=== PATIENT | female | born 1965 | race Caucasian/White ===

== ENCOUNTER 2017-12-30 17:20 | Observation (INO) ==
[2017-12-31] MEDS ORDERED: Naloxone 0.4 MG/ML INJ IVP PRN (00:43)
[2017-12-31] MEDS: *HR* OxyCODONE Immed Rel 5 MG TABLET PO PRN ×3 (01:18→21:12)
[2017-12-31 02:13] LABS: Basophils # 0.1 K/mcL (0.0-0.2); Basophils % 0.6 %; Eosinophils # 0.3 K/mcL (0.0-0.6); Eosinophils % 2.9 %; Hematocrit 39.1 % (35.3-44.9); Hemoglobin 12.3 g/dL (11.5-15.4); Immature Granulocytes % 1.2 % (0-4); Lymphocytes # 2.2 K/mcL (0.6-4.6); Lymphocytes % 24.6 %; Mean Corpuscular HGB Conc 31.5 g/dL (31.6-35.5); Mean Corpuscular Hemoglobin 27.7 pg (28.0-33.3); Mean Corpuscular Volume 88.1 fL (83.0-100.0); Mean Platelet Volume 9.8 fL (9.4-12.4); Monocytes # 0.8 K/mcL (0.0-1.3); Monocytes % 8.6 %; Neutrophils # 5.6 K/mcL (1.6-8.9); Platelet Count 228 K/mcL (140-400); Red Blood Count 4.44 M/mcL (3.82-4.97); Red Cell Distribution Width 15.1 % (11.5-14.5); Segmented Neutrophils % 62.1 %
[2017-12-31 02:18] LABS: Prothrombin Time 11.2 Seconds (9.4-12.1)
[2017-12-31 02:21] LABS: Activated Partial Thrombo Time 35.9 Seconds (26.0-36.0)
[2017-12-31 02:30] LABS: Alanine Aminotransferase 44 Units/L (7-52); Albumin 3.9 g/dL (3.5-5.7); Albumin/Globulin Ratio 1.6 (1.1-2.2); Alkaline Phosphatase 74 Units/L (34-104); Aspartate Amino Transferase 27 Units/L (13-39); BUN/Creatinine Ratio 25 (6-26); Bilirubin,Total 0.3 mg/dL (0.3-1.0); Blood Urea Nitrogen 16 mg/dL (6-20); Carbon Dioxide 23 mEq/L (23-29); Chloride 107 mEq/L (98-107); Chol/HDL Ratio 4.5 (0-4.9); Cholesterol 174 mg/dL (< 200); Globulin 2.5 g/dL (2.4-3.5); Glucose 152 mg/dL (70-105); HDL Cholesterol 39 mg/dL (40-59); LDL Cholesterol,Calculated 102 mg/dL (0-99); Magnesium 1.9 mg/dL (1.6-2.6); Osmolality,Calculated 292 (280-300); Potassium 3.9 mEq/L (3.5-5.1); Sodium 139 mEq/L (136-145); Total Protein 6.4 g/dL (6.4-8.9); Triglycerides 167 mg/dL (< 150); eGFR For Non-African Americans > 60 (> 60)
--- NOTE | 2017-12-31 03:53 | Internal Med History&Physical ---
Date of Encounter: 12/31/17 Time of Encounter: 00:15 Internal Medicine - H&P: HPI Chief complaint: chest pain Admitted From: Emergency Dept Plans for Post Hospital Care: Home History of present illness: Ms. Loera is a 52 year old female who presents to [facility] in transfer from [place] ER with complaints of substernal chest pain, pressure, diaphoresis, and shortness of breath, which woke her from sleep on the evening/ early childhood associate of December 30 at 2 AM. Pain lasted about 40 minutes and eventually went away. She waited until later in the morning to call her PCP and asked for guidance and advice. She received a phone call from her PCP office later in the afternoon who advised her to go to ER for cardiac workup. She therefore came to ER this evening and was admitted for chest pain workup. Upon my assessment of the patient, she is chest pain-free and denies any shortness of breath, diaphoresis, nausea, or radiating chest pain to her arms, neck, or jaw. She has never had symptoms like this before. She is concerned that her chest pain may be due to anxiety, but she also later worried that this could be true cardiac source of pain. She does suffer from anxiety and it has been relatively well controlled on her home medication. She has never had a chest pain workup in the past. Her cardiac risk factors for heart disease include hyperlipidemia and family history. Past Med Surg Social Fam HX - Past Medical History Attestation: Yes The following information was validated with the patient. Source: patient, old records reviewed, other (ER notes) Medical history: GERD, hyperlipidemia Additional medical history: bladder incontinence, colitis Psychiatric history: anxiety - Past Surgical History Surgical History: appendectomy, cholecystectomy, arthroscopy Additional surgical history: tubal, right knee and right shoulder shoulder surgeries - Social History Smoking Status: Never smoker Smokeless Tobacco Status: No Alcohol use: none Drug use: none Current living situation: Home, With Family Activity Level: Independent ambulation Recent Out of Country Travel Within the Last 8 Weeks: No - Family History Mother Hx Family Cardiac Disorders: Yes Father Hx Family Cardiac Disorders: Yes Hx Family Neurologic Disorders: Yes (TIA) Internal Medicine - H&P: Meds Aspirin Enteric Coated [Aspirin EC] 81 mg PO DAILY 01/30/17 [History] FLUoxetine HCl [Prozac] 20 mg PO DAILY 01/30/17 [History] Ibuprofen 600 mg PO Q6H PRN 01/30/17 [History] Omeprazole [PriLOSEC] 20 mg PO DAILY 01/30/17 [History] OxyCODONE Immed Rel [Roxicodone 5 MG] 5 mg PO Q4HR PRN #24 tablet 01/30/17 [Rx] Oxybutynin [Ditropan] 5 mg PO BID 01/30/17 [History] Simvastatin [Zocor] 20 mg PO HS 01/30/17 [History] 3 Allergy/AdvReac Type Severity Reaction Status Date / Time bee venom protein (honey bee) Allergy Anaphylaxis Verified 12/30/17 13:41 Penicillins Allergy Difficulty Verified 12/30/17 13:41 Breathing - Constitutional Constitutional: no chills, no fever(s) - EENT Eyes: no blurry vision, no change in vision Ears: no ear pain, no tinnitus Nose, mouth and throat: no nasal congestion, no sinus pressure, no sore throat - Cardiovascular Cardiovascular ROS IM: chest pain, diaphoresis, dyspnea, no orthopnea, no paroxysmal nocturnal dyspnea, no syncope - Respiratory Respiratory: no cough, no hemoptysis, no chest congestion, no excessive phlegm production, no change in phlegm color - Gastrointestinal Gastrointestinal: no abdominal pain, no diarrhea, no hematemesis, no hematochezia, no melena, no vomiting - Genitourinary Genitourinary: no dysuria, no flank pain, no hematuria - Musculoskeletal Musculoskeletal ROS IM: no arthralgias, no back pain - Integumentary Integumentary IM: no rash, no jaundice - Neurological Neurological ROS: no dizziness, no focal weakness, no frequent falls, no headache(s) - Psychiatric Psychiatric: no anxiety, no depression - Endocrine Endocrine IM: no polydipsia, no polyuria - Allergic/Immunologic Allergic/Immunologic: no wheezing, no GI upset with certain foods - Constitutional Vitals: Temp Pulse Resp BP Pulse Ox 98.0 F 97 16 121/66 95 12/30/17 23:11 12/30/17 23:11 12/30/17 23:11 12/30/17 23:11 12/30/17 23:11 General appearance: Present: cooperative, A&O X 3, pleasant, no acute distress, answers questions appropriately Exam: see below - Head Head exam: Present: normal inspection - Eye Eye exam: Present: EOMI, PERRL. Absent: scleral icterus Pupils: Present: normal accommodation - ENT ENT exam: Present: mucous membranes dry, normal exam, normal oropharynx - Neck Neck exam general surgery: Present: full ROM, supple. Absent: tenderness, nuchal rigidity, thyromegaly - Respiratory Respiratory exam: Present: CTAB. Absent: chest wall tenderness, rales, rhonchi , wheezes - Cardiovascular Cardiovascular exam: Present: RRR, +S1, +S2. Absent: diastolic murmur, systolic murmur - GI/Abdominal GI/Abdominal exam: Present: normal bowel sounds, soft. Absent: hepatomegaly, splenomegaly, tenderness - Extremities Exam Extremities exam: Present: full ROM, warm, radial pulses palpable and symmetrical. Absent: calf tenderness, pedal edema, tenderness - Back Exam Back exam: Absent: CVA tenderness (L), CVA tenderness (R) - Neurological Exam Neurological exam: Present: alert, CN II-XII intact, oriented X3, no focal deficits - Psychiatric Psychiatric exam: Present: anxious - Skin Skin exam: Present: dry, warm. Absent: rash Internal Med - H&P Results - Labs CBC & Chem 7: 12/31/17 01:48 12/31/17 01:48 Labs: Short CBC 12/31/17 Range/Units 01:48 WBC 9.0 (4.3-11.1) K/mcL Hgb 12.3 (11.5-15.4) g/dL Hct 39.1 (35.3-44.9) % Plt Count 228 (140-400) K/mcL Neutrophils # 5.6 (1.6-8.9) K/mcL BMP 12/31/17 01:48 Sodium 139 Potassium 3.9 Chloride 107 Carbon Dioxide 23 BUN 16 Creatinine 0.65 Glucose 152 H Calcium 9.0 Cardiac Enzymes 12/31/17 Range/Units 01:48 Troponin I < 0.03 (< 0.04) ng/mL Liver Function 12/31/17 Range/Units 01:48 Total Bilirubin 0.3 (0.3-1.0) mg/dL AST 27 (13-39) Units/L ALT 44 (7-52) Units/L Alkaline Phosphatase 74 (34-104) Units/L Albumin 3.9 (3.5-5.7) g/dL - EKG Data -: EKG Interpreted by Myself - EKG Data Prior EKG available for review: no EKG comments: 12/31/17 03:57 NSR; subtle lateral wall ST-T depression - Diagnostic Studies Chest x-ray Status: image reviewed by me (negative) - Assessment and plan (1) Chest pain Current Visit: Yes Status: Acute Assessment and plan: 1. Will trend troponins, EKG's. 2. Will order ECHO and stress test to be done in the morning. 3. Consult cardiology if above abnormal. Qualifiers: Chest pain type: precordial pain Qualified Code(s): R07.2 - Precordial pain (2) Hyperlipidemia Current Visit: Yes Status: Chronic Assessment and plan: 1. Will order fasting lipid profile. 2. Continue home meds. Qualifiers: Hyperlipidemia type: unspecified Qualified Code(s): E78.5 - Hyperlipidemia , unspecified (3) Anxiety Current Visit: Yes Status: Chronic Assessment and plan: 1. Continue home dose of Fluoxetine. 2. May need medication adjustment after hospital stay. (4) DVT prophylaxis Current Visit: Yes Status: Acute Assessment and plan: 1. Heparin SQ.
[2017-12-31] MEDS: *HR* Heparin 5,000 UNIT/ML VIAL SQ SCH ×2 (05:57→17:36)
[2017-12-31] MEDS ORDERED: Regadenoson 0.4 MG/5 ML SYRINGE IVP ONE (05:58)
[2017-12-31] MEDS ORDERED: Perflutren Lipid Microsphere 1.3 ML in 0.9 % Sodium Chloride 8.7 ML IVP ONE (11:09)
[2017-12-31] MEDS: FLUoxetine 20 MG CAPSULE PO SCH (12:08)
[2017-12-31] MEDS: Aspirin Enteric Coated 81 MG Tablet PO SCH (12:09)
--- NOTE | 2017-12-31 13:18 | Internal Med Progress Note ---
Hospitalist Progress Note - Encounter Date of Encounter: 12/31/17 Time of Encounter: 13:18 - Exam Vitals: Temp Pulse Resp BP Pulse Ox 97.7 F 82 18 133/74 93 12/31/17 07:55 12/31/17 07:55 12/31/17 07:55 12/31/17 07:55 12/31/17 07:55 Exam: GENERAL: morbidly obese HEENT: Head is normocephalic and atraumatic. Extraocular muscles are intact. Pupils are equal, round, and reactive to light and accommodation, 2 mm bilaterally NECK: Supple. No carotid bruits. No lymphadenopathy or thyromegaly. LUNGS: Clear to auscultation. HEART: Regular rate and rhythm, S1, S2 without murmur. ABDOMEN: TWIN EXTREMITIES: Without any cyanosis, clubbing, rash, lesions or edema. NEUROLOGIC: Alert and appropriate PSYCHIATRIC: Calm at this time SKIN: No ulceration or induration present. - Assessment and Plan (1) Chest pain Current Visit: Yes Status: Acute Assessment and Plan: 1. Troponins are negative [address]-T wave abnormality patient has undergone first half of a 2 day stress test 2. ECHO; EF 60% mild left ventricular diastolic dysfunction normal right ventricular structure and function trace aortic regurgitation possibly underestimated mild tricuspid regurgitation IVC is mildly dilated borderline pulmonary hypertension 3. Consult cardiology if above abnormal. (2) Hyperlipidemia Current Visit: Yes Status: Chronic Assessment and Plan: Continue home meds.-Continue with Zocor (3) Anxiety Current Visit: Yes Status: Chronic Assessment and Plan: 1. Continue home dose of Fluoxetine. 2. May need medication adjustment after hospital stay. (4) DVT prophylaxis Current Visit: Yes Status: Acute Assessment and Plan: 1. Heparin SQ. - Time Spent with Patient Total time spent is greater than 50% in coordination of care (as documented) at patient's floor/unit and/or counseling patient: Internal Medicine: Result - Labs CBC & Chem 7: 12/31/17 01:48 12/31/17 01:48 Labs: Short CBC 12/31/17 Range/Units 01:48 WBC 9.0 (4.3-11.1) K/mcL Hgb 12.3 (11.5-15.4) g/dL Hct 39.1 (35.3-44.9) % Plt Count 228 (140-400) K/mcL Neutrophils # 5.6 (1.6-8.9) K/mcL BMP 12/31/17 01:48 Sodium 139 Potassium 3.9 Chloride 107 Carbon Dioxide 23 BUN 16 Creatinine 0.65 Glucose 152 H Calcium 9.0 Cardiac Enzymes 12/31/17 12/31/17 Range/Units 01:48 08:02 Troponin I < 0.03 < 0.03 (< 0.04) ng/mL Liver Function 12/31/17 Range/Units 01:48 Total Bilirubin 0.3 (0.3-1.0) mg/dL AST 27 (13-39) Units/L ALT 44 (7-52) Units/L Alkaline Phosphatase 74 (34-104) Units/L Albumin 3.9 (3.5-5.7) g/dL - ABG Interpretation ABG results: PT/INR, D-dimer PT 11.2 Seconds (9.4-12.1) 12/31/17 01:48 Consult Discharge Plan - Plan Referrals: Marah Moreno MD [Primary Care Provider] - (1) Chest pain Qualifiers: Chest pain type: precordial pain Qualified Code(s): R07.2 - Precordial pain (2) Hyperlipidemia Qualifiers: Hyperlipidemia type: unspecified Qualified Code(s): E78.5 - Hyperlipidemia, unspecified
[2018-01-01 04:55] LABS: Basophils # 0.1 K/mcL (0.0-0.2); Basophils % 0.9 %; Eosinophils # 0.3 K/mcL (0.0-0.6); Eosinophils % 3.4 %; Hematocrit 39.1 % (35.3-44.9); Hemoglobin 12.4 g/dL (11.5-15.4); Immature Granulocytes % 1.5 % (0-4); Lymphocytes # 2.2 K/mcL (0.6-4.6); Lymphocytes % 27.6 %; Mean Corpuscular HGB Conc 31.7 g/dL (31.6-35.5); Mean Corpuscular Hemoglobin 28.1 pg (28.0-33.3); Mean Corpuscular Volume 88.5 fL (83.0-100.0); Mean Platelet Volume 10.1 fL (9.4-12.4); Monocytes # 0.7 K/mcL (0.0-1.3); Neutrophils # 4.6 K/mcL (1.6-8.9); Platelet Count 213 K/mcL (140-400); Red Blood Count 4.42 M/mcL (3.82-4.97); Segmented Neutrophils % 57.6 %
[2018-01-01 05:34] LABS: BUN/Creatinine Ratio 27 (6-26); Blood Urea Nitrogen 15 mg/dL (6-20); Calcium 8.8 mg/dL (8.6-10.3); Carbon Dioxide 18 mEq/L (23-29); Chloride 108 mEq/L (98-107); Glucose 133 mg/dL (70-105); Osmolality,Calculated 289 (280-300); Potassium 4.3 mEq/L (3.5-5.1); Sodium 138 mEq/L (136-145); eGFR For Non-African Americans > 60 (> 60)
[2018-01-01] MEDS: *HR* Heparin 5,000 UNIT/ML VIAL SQ SCH ×2 (05:49→17:42)
[2018-01-01] MEDS: Aspirin Enteric Coated 81 MG Tablet PO SCH (08:59)
[2018-01-01] MEDS: FLUoxetine 20 MG CAPSULE PO SCH (09:00)
[2018-01-01] MEDS: *HR* OxyCODONE Immed Rel 5 MG TABLET PO PRN (12:01)
--- NOTE | 2018-01-01 13:44 | Cardiology Consult Note ---
<Javier Otero R - Last Filed: 01/01/18 13:42> Date of Encounter: 01/01/18 Time of Encounter: 13:42 Assessment and Plan (1) Abnormal stress test Current Visit: Yes Status: Acute Presented with substernal chest pain, pressure, diaphoresis, and shortness of breath, which woke her from sleep on the evening/solid surface fabricator of December 30 at 2 AM. Pain lasted about 40 minutes and eventually went away, radiated to left jaw. Troponins were negative. 2 day stress test that showed Gated EF = 68%. Small sized, moderate intensity, mostly reversible apex and apical lateral defect possibly due to a small area of ischemia. SDS 3. Cardiology consulted for further recs. TTE EF preserved, mild TR, Lipomatous interatrial septum. Pt reports she had recurrent CP today that radiated to left jaw. Reports both parents had MIs, mother was in her 30s. Risk factors for CAD include HTN, HLD, prior tobacco abuse, family hx and obesity. Recommend [facility]. R/B/A discussed. Pt agrees to proceed. [facility] today. Continue to follow. (2) Chest pain Current Visit: Yes Status: Acute As above, CP with abnormal stress. [facility] today. Qualifiers: Chest pain type: precordial pain Qualified Code(s): R07.2 - Precordial pain Discussion w patient/family: The assessment and plan as outlined above was discussed with the patient and/or family members who expressed understanding and agreement. All questions were answered. Thank you for involving us in the care of your patient. Please call with any questions. I will discuss all the above with Dr. Shaw and make changes as necessary. History of Present Illness Consult date: 01/01/18 Consult reason: abnormal stress Chief complaint: chest pain History of present illness: Ms. Loera is a 52 year old female with PMH of HLD, HTN, prior tobacco abuse, who presented to [facility] in transfer from [facility] with complaints of substernal chest pain, pressure, diaphoresis, and shortness of breath, which woke her from sleep on the evening/solid surface fabricator of December 30 at 2 AM. Pain lasted about 40 minutes and eventually went away, radiated to left jaw. She waited until later in the morning to call her PCP and asked for guidance and advice. She received a phone call from her PCP office later in the afternoon who advised her to go to ER for cardiac workup. She therefore came to ER this evening and was admitted for chest pain workup. Troponins were negative, underwent 2 day stress test that showed Gated EF = 68%. Small sized, moderate intensity, mostly reversible apex and apical lateral defect possibly due to a small area of ischemia. SDS 3. Cardiology consulted for further recs. TTE EF preserved, mild TR, Lipomatous interatrial septum. Pt reports she had recurrent CP today that radiated to left jaw. Reports both parents had MIs, mother was in her 30s. Past Med Surg Social Fam HX - Past Medical History Medical history: GERD, hyperlipidemia Additional medical history: bladder incontinence, colitis Psychiatric history: anxiety - Past Surgical History Surgical History: appendectomy, cholecystectomy, arthroscopy Additional surgical history: tubal, right knee and right shoulder shoulder surgeries - Social History Smoking Status: Never smoker Smokeless Tobacco Status: No Alcohol use: none Drug use: none - Family History Mother Hx Family Cardiac Disorders: Yes Father Hx Family Cardiac Disorders: Yes Hx Family Neurologic Disorders: Yes (TIA) Medications and Allergies Aspirin Enteric Coated [Aspirin EC] 81 mg PO DAILY 01/30/17 [History] FLUoxetine HCl [Prozac] 20 mg PO DAILY 01/30/17 [History] Oxybutynin [Ditropan] 5 mg PO TID 01/30/17 [History] Simvastatin [Zocor] 20 mg PO HS 01/30/17 [History] Colestipol HCl [Colestid] 2 gm PO DAILY 12/31/17 [History] Cyclobenzaprine [Flexeril] 10 mg PO HS PRN 12/31/17 [History] Dicyclomine [Bentyl] 20 mg PO QID 12/31/17 [History] Naproxen [Naprosyn] 500 mg PO BID 12/31/17 [History] 3 Allergy/AdvReac Type Severity Reaction Status Date / Time bee venom protein (honey bee) Allergy Anaphylaxis Verified 12/30/17 13:41 Penicillins Allergy Difficulty Verified 12/30/17 13:41 Breathing All Systems Review: The remainder of the systems were reviewed and are negative - Cardiovascular Cardiovascular: as per HPI, chest pain at rest, chest pain with exertion, diaphoresis, dyspnea on exertion, radiating jaw, neck or arm pain, lightheadedness - Respiratory Respiratory: dyspnea Physical Examination Vital Signs, Last 4 Hours Temp Pulse Resp BP Pulse Ox 01/01/18 11:39 97.9 F 75 16 156/67 97 Vital Signs Temp Pulse Resp BP Pulse Ox 01/01/18 11:39 97.9 F 75 16 156/67 97 01/01/18 07:28 97.9 F 68 16 152/76 96 01/01/18 03:05 97.6 F 87 14 132/70 97 12/31/17 23:27 98.6 F 80 16 152/63 95 12/31/17 19:14 98.2 F 94 16 161/50 96 12/31/17 15:41 98.0 F 86 16 134/76 96 Intake and Output 12/31/17 01/01/18 01/01/18 23:59 07:59 15:59 Intake Total 480 / 480 0 / 0 Output Total 150 / 150 Balance 480 / 480 -150 / -150 Intake: Oral 480 / 480 0 / 0 Output: Urine 150 / 150 Other: Meal npo Percent of Meal Consumed 100% 0% Weight 159 kg Patient Weight 01/01/18 23:59 Weight 159 kg General: Conversant, No Apparent Distress HEENT: Atraumatic, Normocephaly, Mucus Membranes Moist Neck: No JVD, Normal carotid pulses Cardiac: Reg Rate and Rhythm, Normal S1 and S2, No Murmur Lungs: Normal Breath Sounds, No Wheeze, Rales, Rhonchi Neuro: Alert and responsive, No focal deficits noted Abdomen: Soft, Non-Tender Skin: No rashes noted on visualized skin Musculoskeletal: No Chest Wall Tenderness Extremities: No Clubbing, No Cyanosis, No Edema, Normal Pulses Results 01/01/18 03:32 01/01/18 03:32 Lab Results 01/01/18 01/01/18 03:32 03:32 WBC 8.0 Hgb 12.4 Hct 39.1 Plt Count 213 Sodium 138 Potassium 4.3 Chloride 108 H Carbon Dioxide 18 L BUN 15 Creatinine 0.56 L Glucose 133 H Calcium 8.8 Short CBC 01/01/18 Range/Units 03:32 WBC 8.0 (4.3-11.1) K/mcL Hgb 12.4 (11.5-15.4) g/dL Hct 39.1 (35.3-44.9) % Plt Count 213 (140-400) K/mcL Neutrophils # 4.6 (1.6-8.9) K/mcL BMP 01/01/18 Range/Units 03:32 Sodium 138 (136-145) mEq/L Potassium 4.3 (3.5-5.1) mEq/L Chloride 108 H (98-107) mEq/L Carbon Dioxide 18 L (23-29) mEq/L BUN 15 (6-20) mg/dL Creatinine 0.56 L (0.60-1.20) mg/dL Glucose 133 H (70-105) mg/dL Calcium 8.8 (8.6-10.3) mg/dL Impressions Echocardiogram 12/31/17 00:43 Impressions: LVEF 60%. Normal left ventricular diastolic function. Normal right ventricular structure and function. Mild tricuspid regurgitation. No pulmonary hypertension. Lipomatous interatrial septum. Left Ventricular Wall Motion: Rest Echo Findings All wall segments showed normal motion. Findings: Study Quality * Technically adequate exam. ECG Findings * Normal sinus rhythm. Left Ventricle * LVEF 60%. * Normal LV chamber size, wall thickness and function. * Normal left ventricular diastolic function. Right Ventricle * Normal right ventricular structure and function. Left Atrium * Mildly dilated left atrium. Right Atrium * Normal right atrial size. Mitral Valve * Normal mitral valve structure. * No mitral stenosis. * No mitral regurgitation. Aortic Valve * No aortic regurgitation. * Trileaflet aortic valve. * No aortic stenosis. Tricuspid Valve * Normal tricuspid valve structure. * Mild tricuspid regurgitation. Pulmonic Valve * Pulmonic valve is not well visualized. * No pulmonic stenosis. * No pulmonic regurgitation. Pulmonary Artery * Pulmonary artery not well visualized. Aorta * Normally sized aortic root. Pericardium * There is no pericardial effusion present. Interatrial Septum * Lipomatous interatrial septum. * Interatrial septum not well evaluated in the subcostal view. IVC * The IVC is not well evaluated. Active Medications Aspirin (Aspirin Ec) 81 mg PO DAILY [facility] Stop: 07/02/18 09:01 Last Admin: 01/01/18 08:59 Dose: 81 mg Fluoxetine HCl (Prozac) 20 mg PO DAILY [facility] PRN Reason: Protocol Stop: 07/02/18 09:01 Last Admin: 01/01/18 09:00 Dose: 20 mg Heparin Sodium (Porcine) (Heparin) 5,000 unit SQ Q12HCO [facility] Stop: 07/02/18 06:01 Last Admin: 01/01/18 05:49 Dose: 5,000 unit Naloxone HCl (Narcan) 0.4 mg IVP Q2MIN PRN PRN Reason: SEE COMMENTS Stop: 07/02/18 00:44 Omeprazole (Prilosec) 20 mg PO 0800 [facility] PRN Reason: Protocol Stop: 07/02/18 08:01 Last Admin: 01/01/18 08:59 Dose: 20 mg Oxybutynin Chloride (Ditropan) 5 mg PO BID [facility] PRN Reason: Protocol Stop: 07/02/18 01:01 Last Admin: 01/01/18 09:00 Dose: 5 mg Oxycodone HCl (Roxicodone) 5 mg PO Q4HR PRN; Protocol PRN Reason: Pain Stop: 07/02/18 00:50 Last Admin: 01/01/18 12:01 Dose: 5 mg Simvastatin (Zocor) 20 mg PO HS [facility] PRN Reason: Protocol Stop: 07/02/18 01:01 Last Admin: 12/31/17 21:12 Dose: 20 mg - Imaging and Cardiology Stress Test: report reviewed Echo: report reviewed Consult Discharge Plan - Plan Referrals: Marah Moreno MD [Primary Care Provider] - <Brian Shaw - Last Filed: 01/01/18 18:55> Date of Encounter: 01/01/18 - Attending Attestation Patient was seen and evaluated independently by me. Findings, assessment and plan were discussed at length with patient, questions answered. Agree with nurse practitioner's documentation. Addition as follows, 52 yoCF w/ HTN, HLD, ex-smoker p/w angina. + ischemia on SPECT. LHC revealed no obstructive epicardial CAD. No hematoma of R-groin entry site. A: microvascular CAD, angina P: aggressive risk factor modification discussed with pt regarding HTN, HLD control, life style modification f/u PCP Brian Shaw MD, PhD Assessment and Plan Discussion w patient/family: The assessment and plan as outlined above was discussed with the patient and/or family members who expressed understanding and agreement. All questions were answered. Thank you for involving us in the care of your patient. Please call with any questions. History of Present Illness History of present illness: Ms. Loera is a 52 year old female All Systems Review: The remainder of the systems were reviewed and are negative Physical Examination Vital Signs, Last 4 Hours Pulse Resp BP Pulse Ox 01/01/18 18:20 79 14 119/53 98 01/01/18 18:05 77 16 116/55 97 01/01/18 17:50 73 16 115/68 96 01/01/18 17:35 77 16 103/63 95 Results 01/01/18 03:32 01/01/18 03:32 Lab Results 01/01/18 01/01/18 03:32 03:32 WBC 8.0 Hgb 12.4 Hct 39.1 Plt Count 213 Sodium 138 Potassium 4.3 Chloride 108 H Carbon Dioxide 18 L BUN 15 Creatinine 0.56 L Glucose 133 H Calcium 8.8
[2018-01-01] MEDS ORDERED: *HR* Heparin 10,000 UNIT/10 ML VIAL ONE (15:22)
[2018-01-01] MEDS ORDERED: Verapamil 5 MG/2 ML VIAL ONE (15:22)
[2018-01-01] MEDS ORDERED: Heparin 1,000 UNITS/500 mL 500 ML ONE (15:22)
[2018-01-01] MEDS ORDERED: 0.9 % Sodium Chloride 1,000 ML ONE ×2 (15:22→15:25)
[2018-01-01] MEDS ORDERED: Nitroglycerin 1,000 MCG/10 ML VIAL IV ONE (15:23)
[2018-01-01] MEDS ORDERED: ISOVUE-370 200 ML INFUS..BTL IV ONE (15:23)
[2018-01-01] MEDS ORDERED: *HR* FentaNYL (PF) 100 MCG/2 ML VIAL ONE (16:31)
[2018-01-01] MEDS ORDERED: *HR* Midazolam HCl 5 MG/5 ML VIAL IVP ONE (16:31)
--- NOTE | 2018-01-01 16:44 | Pre-Sedation Evaluation ---
Pre-sedation evaluation - Pre-sedation checklist Date of procedure: 01/01/18 Procedure: heart cath Recent Vitals: Last Vital Signs Temp 97.9 F 01/01/18 11:39 Pulse 75 01/01/18 11:39 Resp 16 01/01/18 11:39 BP 156/67 01/01/18 11:39 Pulse Ox 97 01/01/18 11:39 H&P (including ROS) documented in medical record: Yes Dietary Status: NPO after Midnight Dentition: No loose teeth or bridges, full dentition ASA Classification *see protocol: CLASS II-Mild systemic disease Plan of Care: Pt appropriate candidate for procedure/moderate/conscious sedation , Risks/benefits of procedure/sedation discussed w/ patient/family Cardiac Registry (Cardio Only) - Functional Capacity Functional Capacity: >=4 METS with symptoms - Clincal Frailty Scale Clinical Frailty Scale: Managing Well
--- NOTE | 2018-01-01 17:15 | Event Note ---
Date of Encounter: 01/01/18 Time of Encounter: 17:20 - Cardiology Event Note Prelim - Minimal CAD by [facility] with EF 45-50%
--- NOTE | 2018-01-01 17:30 | Invasive Diagnostic Lab Proc ---
Name: Nayla Loera Date of Study: 01/01/2018 Date: 1965 Ht: 64.2in Medical Record#: [id number] Age: 52 Wt: 350.54lb Gender: Female BSA: 2.49 Order #: [id number] BMI: 59.84 Physicians Procedure Physician: Brennon Zhu MD, [facility] Referring MD: Referring MD: Staff Name Position Time In Sites, Sonam RT (R) Monitor 04:38 PM Sonam Wolfe RT (R) Scrub 04:38 PM Angel Brown RN Housekeeping Aid 04:38 PM Indications Indication Abnormal Test - Stress Procedures Performed Procedure L HRT ARTERY/VENTRICLE ANGIO Pre-Procedure Checklist Informed consent is complete signed and on chart. H&P is on chart. ID band is on and ID verified with patient. Patient NPO for procedure The procedure was described for the patient and questions were answered. Blood Pressure: 149/84 ECG is on chart. Rhythm: NSR Plan of Care Patient will tolerate the procedure without complications. Adequate level of comfort will be maintained. Hemodynamics will remain stable Patient will recover from procedure without complications. Respiratory function will be maintained. Cardiac rhythm will remain stable. Patient temperature will be maintained. Patient and/or family have verbalized understanding of the procedure. Patient Education Chief Complaint/Reason for Test: Cardiac Cath Developmental Category: Adult (18-64 years) Developmentally Appropriate for Age: Yes Learning Barriers: None Education Needs: Procedure Education Method: Verbal Information Taught: Cardiac Cath Educational Evaluation: Able to repeat information Intravenous Access Time IV Size Location DC'd Fluid/Drip Rate Units RN 22g 1" Patent On Arrival Rt Hand 0.9NaCl 25 ml/hr Angel Brown RN Allergies Penicillins bee venom protein (honey bee) Vital Signs Time BP (mmHg) HR (bpm) O2 Sat. RR (bpm) LOC 04:40 PM / % 5 = Fully awake and oriented or at pre-proc level 04:40 PM / % 4 = Oriented but drowsy 04:37 PM 149 / 84 75 99 % 15 04:42 PM 135 / 75 75 96 % 20 04:47 PM 138 / 78 73 95 % 13 04:52 PM 144 / 76 73 99 % 14 04:57 PM 138 / 78 78 97 % 12 05:02 PM 136 / 75 84 99 % 14 05:07 PM 136 / 77 81 97 % 12 05:12 PM 144 / 53 77 100 % 13 Procedural Medications Time Medication Dose Units Method Given By 04:39 PM Oxygen 2 L/min nasal cannula Angel Brown RN 04:39 PM Versed 2 mg Intravenous Angel Brown RN 04:39 PM Fentanyl 50 mcg Intravenous Angel Brown RN 04:51 PM Versed 1 mg Intravenous Angel Brown RN 04:51 PM Fentanyl 25 mcg Intravenous Angel Brown RN 04:51 PM Lidocaine 2% 0.5 ml Subcutaneous Brennon Zhu MD, FAC 04:57 PM Lidocaine 2% 20 ml Subcutaneous Brennon Zhu MD, FAC 05:02 PM Versed 1 mg Intravenous Angel Brown RN 05:02 PM Fentanyl 25 mcg Intravenous Angel Brown RN ASA Classification: CLASS II- Mild systemic disease (i.e. well-controlled diabetes, hypertension, asthma, cigarette smoking) Satish Score Preprocedure Postprocedure Activity 2- Moves 4 extremities sustained head lift Activity 2- Moves 4 extremities sustained head lift Circulation 2- SBP +/= 20 points of pre-anesthetic level Circulation 2- SBP +/= 20 points of pre-anesthetic level Consciousness 2- Awake and alert oriented x 3 Consciousness 2- Awake and alert oriented x 3 O2 Saturation 2- Able to maintain O2 satruation of 92% on room air O2 Saturation 2- Able to maintain O2 satruation of 92% on room air Respiratory 2- Able to deep breathe and cough well Respiratory 2- Able to deep breathe and cough well Total Score 10 Total Score 10 Contrast Agent: Isovue Diagnostic Contrast: 83 ml Total Contrast: 83 ml Fluoro Dose: 3811 mGy Procedure Log Time Note Enter By 04:36 PM Vitals capture started with the following parameters, Patient=Adult, Interval=5 min, Initial Xrerwklt=074 mmHg, Deflation Rate=5 mmHg, Cuff placed on Right Arm 04:36 PM CathStat 04:37 PM HR=75 bpm, CFKL=803/84 mmhg, SpO2=99 %, Resp=15 B/min 04:38 PM Pt arrived to laboratory technician 2 at 16:38 tsites 04:38 PM Sonam Avalos RT (R) Position: Monitor Time in: 16:38 tsites 04:38 PM Sonam Wolfe RT (R) Position: Scrub Time in: 16:38 tsites 04:39 PM Angel Brown RN Position: Housekeeping Aid Time in: 16:38 tsites 04:39 PM Patient charges- Angio tray pack, Navilyst 3mm J, Pulse Oximetry and ACIST tubing and transducer tsites 04:39 PM Physician arrived 16:39 tsites 04:39 PM Meet and greet completed tsites 04:39 PM Sign in performed according to hospital policy. tsites 04:39 PM Procedure start 16:39 tsites 04:39 PM Hair removed from procedure site in holding area using clippers. Right wrist prepped with Chloraprep by Sonam Avalos (R), then patient was draped. Skin intact. tsites 04:39 PM Time: 16:39 Oxygen on at 2 L/min per nasal cannula by Angel Brown RN tsites 04:39 PM Time: 16:39 Versed 2 mg Intravenous Given by Angel Brown RN tsites 04:39 PM Time: 16:39 Fentanyl 50 mcg Intravenous Given by Angel Brown RN tsites 04:40 PM Time: 16:40 Patient comfortable and pain free: Yes tsites 04:40 PM Time: 16:40LOC: 5 = Fully awake and oriented or at pre-proc level tsites 04:40 PM Clinical Presentation: Unstable angina tsites 04:41 PM Recorded ECG: HR=80 Condition=Condition 1 04:42 PM HR=75 bpm, KXJI=144/75 mmhg, SpO2=96.0 %, Resp=20 B/min 04:44 PM Pressure channel 1 zeroed. 04:47 PM HR=73 bpm, SYWE=146/78 mmhg, SpO2=95 %, Resp=13 B/min 04:51 PM Time out performed according to hospital policy tsites 04:51 PM Time: 16:51 Versed 1 mg Intravenous Given by Angel Brown RN tsites 04:51 PM Time: 16:51 Fentanyl 25 mcg Intravenous Given by Angel Brown RN tsites 04:52 PM Time: 16:51 0.5 ml Lidocaine 2% to right radial Subcutaneous Given by Brennon Zhu MD, [facility] tsites 04:52 PM HR=73 bpm, SKTV=878/76 mmhg, SpO2=99 %, Resp=14 B/min 04:56 PM Time: 16:40LOC: 4 = Oriented but drowsy tsites 04:56 PM Time: 16:40 Patient comfortable and pain free: Yes tsites 04:56 PM Unsuccessful access attempt # 1 into the right Radial artery. Manual pressure applied to achieve hemostasis.. tsites 04:57 PM Hair removed from procedure site in procedure lab using clippers. Right groin prepped with Chloraprep by Sonam Avalos (Mayra), then patient was draped. Skin intact. tsites 04:57 PM HR=78 bpm, TEIA=847/78 mmhg, SpO2=97 %, Resp=12 B/min 04:59 PM Time: 16:57 20 ml Lidocaine 2% to right groin Subcutaneous Given by Brennon Zhu MD, [facility] tsites 04:59 PM Access obtained by percutaneous puncture. 5Fr 10cm Terumo Voltaire sheath placed in right Femoral artery. [id number] tsites 05:00 PM 5Fr FR 4 catheter inserted over the wire [facility] tsites 05:00 PM 0.035 145cm Navilyst 3mmJ wire [id number] tsites 05:01 PM RCA angiography performed in multiple views. tsites 05:01 PM Recorded Pressure: Ao, HR=76, Condition=Condition 1 (Aorta) Ao 103/71/86 05:02 PM wire reinserted catheter removed tsites 05:02 PM HR=84 bpm, VTTX=238/75 mmhg, SpO2=99.0 %, Resp=14 B/min 05:02 PM 5Fr FL 4 catheter inserted over the wire [facility] tsites 05:02 PM LCA angiography performed in multiple views. tsites 05:02 PM Time: 17:02 Versed 1 mg Intravenous Given by Angel Brown RN tsites 05:02 PM Time: 17:02 Fentanyl 25 mcg Intravenous Given by Angel Brown RN tsites 05:03 PM Recorded Pressure: Ao, HR=84, Condition=Condition 1 (Aorta) Ao 101/67/83 05:04 PM Lesion found in Mid LAD. Pre Stenosis: 20 Pre ALLISON Flow: tsites 05:04 PM wire reinserted catheter removed tsites 05:04 PM 5Fr Pigtail catheter inserted over the wire [facility] tsites 05:04 PM Catheter selectively placed in left ventricle tsites 05:05 PM Recorded Pressure: LV, HR=31, Condition=Condition 1 (Left Ventricle) LV 131/-6/-2 05:05 PM Bolus angiogram of left Ventricle complete: 10 ml/sec for a total of 30 mls tsites 05:06 PM Bolus angiogram of left Ventricle complete: 10 ml/sec for a total of 30 mls tsites 05:07 PM Recorded Pressure: LV, HR=82, Condition=Condition 1 (Left Ventricle) LV 101/6/31 05:07 PM Recorded Pressure: LV, Ao, HR=91, Condition=Condition 1 (Left Ventricle) LV 100/14/25, (Aorta) Ao 126/70/?* 05:07 PM HR=81 bpm, SUTS=819/77 mmhg, SpO2=97 %, Resp=12 B/min 05:12 PM Coronary Dominance: right tsites 05:12 PM Mid/Distal Left Anterior Descending Coronary Artery and diagonal branches with 20% stenosis. If graft is supplying this area, 0 % stenosis tsites 05:12 PM HR=77 bpm, BIFI=986/53 mmhg, ZpM3=435 %, Resp=13 B/min 05:12 PM Procedure completed at 17:12 01/01/2018 tsites 05:13 PM Sign out completed: Radiation Dose 380 mGy, 3811 cGy/cm2 Fluoro Time: 1.7 Isovue 370 - 200ml contrast 83 ml given by Brennon Zhu MD, [facility]. Complications: NoneCardiac Rehab Consult needed: NoConfirmed administered medications: Yes tsites 05:13 PM Isovue 370 - 200ml,1 Bottle(s) used. tsites 05:13 PM Arterial sheath pulled, Mynx closure device used and was Successful S/N. tsites 05:13 PM Estimated Blood Loss: minimal tsites 05:13 PM Post ECG NSR tsites 05:13 PM Post Blood Pressure 144/53 tsites 05:13 PM 17:13 Post Pulses Bilateral DP & PT 1+ tsites 05:13 PM Information taught Cardiac Cath and Mynx tsites 05:14 PM Education needs Procedure and Plan of Care tsites 05:14 PM Learning barriers :None tsites 05:14 PM Education Methods Verbal tsites 05:14 PM Education evaluation Able to repeat information tsites 05:14 PM Site status No bleeding/hematoma - Rt Groin as reported by Sonam Wolfe RT (R) at 17:14 tsites 05:14 PM Opsite applied tsites 05:14 PM Family placed in consult room. tsites 05:14 PM Delay to floor No tsites 05:17 PM Patient out of room: 17:17 tsites Complications Complication None Hemodynamics Pressures Site Systolic/A Wave Diastolic/V Wave Mean AO 103 71 86 AO 101 67 83 LV 131 -6 -2 LV 100 14 25 LV 101 6 31 AO 126 70 Post Procedure Information Blood Pressure: 144/53 mmHg Rhythm: NSR Post procedural instructions were given Closure Device Time Device Success/Fail 01/01/2018 5:19:00 PM MynxGrip Successful Site Checks Time Location Status Staff Sheath In? Note 05:14 PM Rt Groin No bleeding/hematoma Sonam Wolfe RT (R) Pulses Time Site Pre-Procedure Post-Procedure Note Bilateral DP & PT 2+ Bilateral radial 2+ 5:13:00 PM Bilateral DP & PT 1+ Updated by Sonam Avalos RT (R) on 01/01/2018 5:22:19 PM Sonam Avalos RT electronically signed on 01/01/2018 5:22:54 PM with status of Final
--- NOTE | 2018-01-01 19:27 | Internal Med Progress Note ---
Hospitalist Progress Note - Encounter Date of Encounter: 01/01/18 Time of Encounter: 10:00 - Subjective Interval History: Patient was seen and examined at bedside she has completed his second half of 2 day stress. Stress test results did reveal abnormality which I did review with patient and who verbalized understanding. Patient will be seen by cardiology this afternoon continue with nothing by mouth status at this time - Exam Vitals: Temp Pulse Resp BP Pulse Ox 97.4 F L 79 16 115/55 92 01/01/18 18:49 01/01/18 18:50 01/01/18 18:50 01/01/18 18:50 01/01/18 18:50 Exam: GENERAL: morbidly obese HEENT: Head is normocephalic and atraumatic. Extraocular muscles are intact. Pupils are equal, round, and reactive to light and accommodation, 2 mm bilaterally NECK: Supple. No carotid bruits. No lymphadenopathy or thyromegaly. LUNGS: Clear to auscultation. HEART: Regular rate and rhythm, S1, S2 without murmur. ABDOMEN: TWIN EXTREMITIES: Without any cyanosis, clubbing, rash, lesions or edema. NEUROLOGIC: Alert and appropriate PSYCHIATRIC: Calm at this time SKIN: No ulceration or induration present. - Assessment and Plan (1) Chest pain Current Visit: Yes Status: Acute Assessment and Plan: 1. Troponins are negative [address]-T wave abnormality patient has undergone first half of a 2 day stress test 2. ECHO; EF 60% mild left ventricular diastolic dysfunction normal right ventricular structure and function trace aortic regurgitation possibly underestimated mild tricuspid regurgitation IVC is mildly dilated borderline pulmonary hypertension 3. Cardiac stress test did show small size moderate intensity mostly reversible apex and apical lateral defect possibly due to small area of ischemia. Cardiology has been consulted and patient will undergo cardiac catheterization this afternoon (2) Hyperlipidemia Current Visit: Yes Status: Chronic Assessment and Plan: Continue home meds.-Continue with Zocor (3) Anxiety Current Visit: Yes Status: Chronic Assessment and Plan: 1. Continue home dose of Fluoxetine. 2. May need medication adjustment after hospital stay. (4) DVT prophylaxis Current Visit: Yes Status: Acute Assessment and Plan: 1. Heparin SQ. - Time Spent with Patient Total time spent is greater than 50% in coordination of care (as documented) at patient's floor/unit and/or counseling patient: Internal Medicine: Result - Labs CBC & Chem 7: 01/01/18 03:32 01/01/18 03:32 Labs: Short CBC 01/01/18 Range/Units 03:32 WBC 8.0 (4.3-11.1) K/mcL Hgb 12.4 (11.5-15.4) g/dL Hct 39.1 (35.3-44.9) % Plt Count 213 (140-400) K/mcL Neutrophils # 4.6 (1.6-8.9) K/mcL BMP 01/01/18 03:32 Sodium 138 Potassium 4.3 Chloride 108 H Carbon Dioxide 18 L BUN 15 Creatinine 0.56 L Glucose 133 H Calcium 8.8 - ABG Interpretation ABG results: PT/INR, D-dimer PT 11.2 Seconds (9.4-12.1) 12/31/17 01:48 Consult Discharge Plan - Plan Referrals: Marah Moreno MD [Primary Care Provider] - (1) Chest pain Qualifiers: Chest pain type: precordial pain Qualified Code(s): R07.2 - Precordial pain (2) Hyperlipidemia Qualifiers: Hyperlipidemia type: unspecified Qualified Code(s): E78.5 - Hyperlipidemia, unspecified
[2018-01-02] MEDS: *HR* Heparin 5,000 UNIT/ML VIAL SQ SCH (05:00)
[2018-01-02 06:12] LABS: Basophils # 0.1 K/mcL (0.0-0.2); Basophils % 0.7 %; Eosinophils # 0.2 K/mcL (0.0-0.6); Eosinophils % 3.6 %; Hematocrit 43.2 % (35.3-44.9); Hemoglobin 13.6 g/dL (11.5-15.4); Immature Granulocytes % 1.3 % (0-4); Lymphocytes # 1.4 K/mcL (0.6-4.6); Lymphocytes % 20.7 %; Mean Corpuscular HGB Conc 31.5 g/dL (31.6-35.5); Mean Corpuscular Hemoglobin 27.7 pg (28.0-33.3); Mean Platelet Volume 9.8 fL (9.4-12.4); Monocytes # 0.4 K/mcL (0.0-1.3); Monocytes % 6.2 %; Neutrophils # 4.6 K/mcL (1.6-8.9); Platelet Count 194 K/mcL (140-400); Red Blood Count 4.91 M/mcL (3.82-4.97); Red Cell Distribution Width 15.1 % (11.5-14.5); Segmented Neutrophils % 67.5 %
--- NOTE | 2018-01-02 07:23 | Discharge Summary ---
- NOTES TO OUTPATIENT PROVIDER Notes to Outpatient Provider: Patient had abnormal stress test underwent cardiac catheterization risk factor modification and medical management. We will follow-up with cardiology as outpatient. Orders not resulted at time of discharge: Pending orders 12/31/17 00:48 NM suzanne perf SPECT multi [NM] Routine 12/31/17 06:00 ECG 12 lead ECG [ECG] AM 0600 01/03/18 04:00 CBC [Complete Blood Count] [HEME] AM 0400 Date of Encounter: 01/06/18 Time of Encounter: 07:20 - Discharge Diagnosis (1) Chest pain Priority: Primary Status: Acute Qualifiers: Chest pain type: precordial pain Qualified Code(s): R07.2 - Precordial pain (2) Hyperlipidemia Priority: Secondary Status: Chronic Qualifiers: Hyperlipidemia type: unspecified Qualified Code(s): E78.5 - Hyperlipidemia , unspecified (3) Anxiety Priority: Secondary Status: Chronic Hospital course: Ms. Loera is a 52 year old female past medical history hyperlipidemia hypertension prior tobacco abuse presented to the ER as transfer from [facility] with complaints of substernal chest pain pressure diaphoresis and shortness of breath which woke her from sleep. The pain lasts approximately 40 minutes and eventually resolved. She contacted her PCP that morning advised her go to the ER. ER workup troponins were negative EKG with no ST T wave abnormalities. She underwent 2 day stress test was to show a small sized moderate intensity mostly reversible apex and apical lateral defect possibly due to small area of ischemia. Cardiac echo did show preserved EF with mild TR. Cardiology was consulted patient did undergo a cardiac catheterization-no PCI recommending medical management and risk reduction. Patient will follow-up with cardiology as outpatient as well as primary care provider since provided Mr. Guerrier and can adjust medications accordingly. Patient is deemed medically stable and she is ready for discharge. Discharge discussed with: patient - Time Spent with Patient Total time spent providing and/or coordinating discharge services: - Discharge Medications Prescriptions: Nitroglycerin 0.4 mg SL Q5MIN #30 tab.subl Home Medications: Aspirin Enteric Coated [Aspirin EC] 81 mg PO DAILY 01/30/17 [History] FLUoxetine HCl [Prozac] 20 mg PO DAILY 01/30/17 [History] Oxybutynin [Ditropan] 5 mg PO TID 01/30/17 [History] Simvastatin [Zocor] 20 mg PO HS 01/30/17 [History] Colestipol HCl [Colestid] 2 gm PO DAILY 12/31/17 [History] Cyclobenzaprine [Flexeril] 10 mg PO HS PRN 12/31/17 [History] Dicyclomine [Bentyl] 20 mg PO QID 12/31/17 [History] Naproxen [Naprosyn] 500 mg PO BID 12/31/17 [History] Nitroglycerin 0.4 mg SL Q5MIN #30 tab.subl 01/02/18 [Rx] Allergies/Adverse Reactions: 3 Allergy/AdvReac Type Severity Reaction Status Date / Time bee venom protein (honey bee) Allergy Anaphylaxis Verified 12/30/17 13:41 Penicillins Allergy Difficulty Verified 12/30/17 13:41 Breathing Date of admission: 12/30/17 19:19 Primary care physician: Marah Moreno MD Consults: 01/01/18 11:11 Consult to Cardiology [CONS] Routine Comment: Consulting Provider: Cardiology [place] Reason for Consult: abnormal stress Time Notified: 11:12 Call Completed: Yes Discharging clinician: Brittaney Forbes Anticipated date of discharge: 01/02/18 - Constitutional Vitals: Temp Pulse Resp BP Pulse Ox 97.7 F 74 16 149/70 97 01/02/18 06:41 01/02/18 06:41 01/02/18 06:41 01/02/18 06:41 01/02/18 06:41 General appearance: Present: cooperative, A&O X 3, pleasant, no acute distress, answers questions appropriately Exam: see above - Head Head exam: Present: atraumatic, normocephalic - Eye Eye exam: Present: PERRL, conjuntiva pink, sclera anicteric Pupils: Present: PERRL - Neck Neck exam general surgery: Present: supple, trachea midline. Absent: lymphadenopathy - Respiratory Respiratory exam: Present: CTAB. Absent: accessory muscle use, rales, rhonchi, wheezes - Cardiovascular Cardiovascular exam: Present: RRR, +S1, +S2. Absent: diastolic murmur, gallop, rubs, systolic murmur - GI/Abdominal GI/Abdominal exam: Present: normal bowel sounds, soft, no peritoneal signs. Absent: distended, tenderness - Extremities Exam Extremities exam: Present: warm, radial pulses palpable and symmetrical. Absent : calf tenderness, cyanotic, pedal edema - Neurological Exam Neurological exam: Present: CN II-XII intact, oriented X3, no focal deficits. Absent: pronater drift, facial droop, speech deficit - Skin Skin exam: Present: dry, intact - Patient Status Disposition: Home, Self-Care - Discharge Instructions Instructions: Left Heart Catheterization (DC) Follow Up With: Brennon Zhu MD [Partnered Physician] - (Cardio office will contact you with follow up appointment.) Marah Moreno MD [Primary Care Provider] - 01/09/18 10:30 am Forms: Inpatient Work/School Release
[2018-01-02] MEDS: FLUoxetine 20 MG CAPSULE PO SCH (10:27)
[2018-01-02] MEDS: Aspirin Enteric Coated 81 MG Tablet PO SCH (10:27)
[2018-01-02 11:46] VITALS: BP 168/76
== END 2018-01-02 14:03 | disposition home or self-care (01) ==
LOC: 3BNU
PROVIDERS: ADMIT Internal Medicine; ATTEND Internal Medicine